=== PATIENT | female | born 1940 ===

== ENCOUNTER 2016-10-04 11:02 | Observation (INO) | payer MEDICARE, OTHER ==
[2016-10-04 11:03] VITALS: BMI 34.4
--- NOTE | 2016-10-04 11:29 | C.PDOC ---
History Of Present Illness Patient is a 76 y/o female, whose PMHx includes diabetes, HTN, and hypercholesterolemia, that is sent to the ED by PMD for elevated potassium level. Patient had routine blood work done today which showed potassium level of about 6.2. As per family member, patient's potassium levels have been high in the past. Denies any kidney disease. Family member also states that patient has not had BM since past 2 days. Otherwise, patient denies any physical complaints at this time. Time Seen by Provider: 10/04/16 11:15 Chief Complaint (Nursing): Abnormal Labs History Per: Family History/Exam Limitations: no limitations Current Symptoms Are (Timing): Still Present Severity: None Pain Scale Rating Of: 0 Recent travel outside of the [place]: No Additional History Per: Family Past Medical History Reviewed: Historical Data, Nursing Documentation, Vital Signs Vital Signs: Last Vital Signs Temp 97.8 F 10/04/16 16:35 Pulse 88 10/04/16 16:35 Resp 18 10/04/16 16:35 BP 177/98 H 10/04/16 16:35 Pulse Ox 98 10/04/16 16:35 - Medical History PMH: HTN, Hypercholesterolemia, Hyperlipidemia, Chronic Kidney Disease Surgical History: Cholecystectomy Denies: Pacemaker - [facility] Procedures DRAINAGE OF GALLBLADDER WITH DRAINAGE DEVICE, PERC APPROACH (02/29/16) TRANSFUSE NONAUT FROZEN PLASMA IN PERIPH VEIN, PERC (02/29/16) TRANSFUSE NONAUT PLATELETS IN PERIPH VEIN, PERC (02/29/16) Family History: States: Unknown Family Hx - Social History Hx Alcohol Use: No Hx Substance Use: No - Immunization History Hx Tetanus Toxoid Vaccination: No Hx Influenza Vaccination: No Hx Pneumococcal Vaccination: No Review Of Systems Except As Marked, All Systems Reviewed And Found Negative. Constitutional: Negative for: Fever, Chills Cardiovascular: Negative for: Chest Pain, Palpitations Respiratory: Negative for: Cough, Shortness of Breath Gastrointestinal: Negative for: Nausea, Vomiting, Abdominal Pain Neurological: Negative for: Weakness, Numbness, Headache, Dizziness Physical Exam - Physical Exam Appears: Non-toxic, No Acute Distress Skin: Normal Color, Warm, Dry Head: Atraumatic, Normacephalic Eye(s): bilateral: Normal Inspection, EOMI Neck: Normal ROM, Supple Chest: Symmetrical, No Tenderness Cardiovascular: Rhythm Regular, No Murmur Respiratory: Normal Breath Sounds, No Accessory Muscle Use, No Rales, No Rhonchi , No Wheezing Gastrointestinal/Abdominal: Soft, No Tenderness, No Distention, No Guarding Extremity: Normal ROM, No Deformity Neurological/Psych: Oriented x3, Normal Speech Gait: Steady ED Course And Treatment - Laboratory Results Result Diagrams: 10/04/16 16:00 Lab Interpretation: Abnormal ECG: Interpreted By Me, Viewed By Me (and Dr Lawler) ECG Rhythm: Sinus Rhythm ECG Interpretation: No Acute Changes Interpretation Of ECG: NSR at 87 bpm with low voltage, no peaked twaves, or widened QRS. O2 Sat by Pulse Oximetry: 99 (on RA) Pulse Ox Interpretation: Normal Progress Note: Labs, EKG ordered and reviewed. Patient was treated with Dextrose IV, Insulin, Sodium Bicarbonate, IV fluids, and Kayexalate oral susp. Case discussed with Dr. Lawler who agrees with plan and treatment. On reassessment, patient is resting comfortably, no acute distress. Medical Decision Making Medical Decision Making: Impression: Hyperkalemia 6.2 Plan: Labs, EKG ordered. Patient was treated with Dextrose IV, Insulin, Sodium Bicarbonate, IV fluids, and Kayexalate oral susp. Progress: EKG reviewed showing no peaked twaves or widened QRS, no acute changes. Patient was treated with Dextrose IV, Insulin, Sodium Bicarbonate, IV fluids, and Kayexalate oral susp. Case discussed with Dr. Lawler who agrees with plan and treatment. On reassessment, patient is resting comfortably, no acute distress. 14:[address] Olmos over phone who request to repeat blood work again after 2 hours, and requested to call him again if the potassium level remains above 5. ED OBSERVATION Discharge: Yes Date of observation admission: 10/04/16 - Observation admission statement Patient is being placed in observation because:: Hyperkalemia - Goals of Observation Goals of observation are:: cardiac monitoring, medications, iv fluids, repeat analysis - Progress Note Progress Note: 10/04/16 16:00 Potassium is 5.4 Patient remains alert and oriented in no distress. Patient is asking for discharge she states she does not want to stay in hospital. monitor shows no arrythmia and vital signs stable. I will call PCP Dr Olmos to discuss 10/04/16 16:[address] Olmos and recommended one more oral dose of Kayexylate and can discharge. Patient and family agreeable with plan for discharge. Patient to follow up on Thursday for repeat bloodwork. Disposition Counseled Patient/Family Regarding: Studies Performed, Diagnosis, Need For Followup - Disposition Disposition: HOME/ ROUTINE Disposition Time: 16:28 Condition: STABLE - POA Present On Arrival: None - Clinical Impression Clinical Impression: Hyperkalemia - PA / DAIRY ASSOCIATE / Resident Statement MD/DO has reviewed & agrees with the documentation as recorded. - Scribe Statement The provider has reviewed the documentation as recorded by the Scribjanneth Carney All medical record entries made by the Kelli were at my direction and personally dictated by me. I have reviewed the chart and agree that the record accurately reflects my personal performance of the history, physical exam, medical decision making, and the department course for this patient. I have also personally directed, reviewed, and agree with the discharge instructions and disposition.
[2016-10-04] MEDS ORDERED: Sodium Chloride 0.9% 1,000 ML IV ONE (11:30)
[2016-10-04] MEDS ORDERED: (Novolin R) Insulin Human Regular 100 units/ml vial IV ONE (11:41)
[2016-10-04] MEDS ORDERED: Dextrose 50% SYRINGE Inj (50 ml) IV STA (11:42)
[2016-10-04] MEDS ORDERED: Sodium Bicarbonate (8.4%) 50 Meq Syringe IVP ONE (11:43)
[2016-10-04] MEDS ORDERED: Sod Polystyrene Sulf 15 gm/60 ml Oral Susp PO ONE ×2 (11:43→16:23)
[2016-10-04] MEDS ORDERED: Dextrose 50% SYRINGE Inj (50 ml) ONE (11:56)
[2016-10-04] MEDS ORDERED: Sodium Chloride 0.9% 1,000 ML ONE (11:56)
[2016-10-04] MEDS ORDERED: (Novolin R) Insulin Human Regular 100 units/ml vial ONE (11:57)
[2016-10-04] MEDS ORDERED: Sodium Bicarbonate (8.4%) 50 Meq Syringe ONE (11:58)
[2016-10-04] MEDS ORDERED: Sod Polystyrene Sulf 15 gm/60 ml Oral Susp ONE ×2 (11:59→16:55)
[2016-10-04 12:20] LABS: POTASSIUM 6.1 mmol/L (3.6-5.2)
[2016-10-04 12:22] LABS: BILIRUBIN,TOTAL 0.4 mg/dL (0.2-1.3); TOTAL PROTEIN 7.6 g/dL (6.3-8.3)
[2016-10-04 12:23] LABS: CALCIUM 9.4 mg/dl (8.6-10.4)
[2016-10-04 13:55] LABS: POTASSIUM 5.5 mmol/L (3.6-5.2)
[2016-10-04 13:57] LABS: BILIRUBIN,TOTAL 0.4 mg/dL (0.2-1.3)
[2016-10-04 13:58] LABS: ALB/GLOB RATIO 0.9 (1.0-2.1); CALCIUM 9.2 mg/dl (8.6-10.4); TOTAL PROTEIN 7.4 g/dL (6.3-8.3)
[2016-10-04 16:12] LABS: POTASSIUM 5.4 mmol/L (3.6-5.2)
[2016-10-04 16:15] LABS: CALCIUM 9.4 mg/dl (8.6-10.4)
[2016-10-04 16:36] VITALS: BP 177/98; PULSE 88; RESP 18; TEMP 97.8
[2016-10-04 17:29] VITALS: O2SAT 99
== END 2016-10-04 16:27 | disposition home or self-care (01) ==
LOC: C.ER 11:02 → C.9OBSV 11:45
PROVIDERS: ADMIT Emergency Medicine; ATTEND Emergency Medicine
DX: E87.5 Hyperkalemia (principal); I10 Essential (primary) hypertension; E11.9 Type 2 diabetes mellitus without complications; E78.00 Pure hypercholesterolemia, unspecified
CPT/HCPCS: 36415; 80048; 80053; 96360; 96374; 99283; G0378; J1940; J7040

== ENCOUNTER 2016-10-06 08:34 | Emergency (ER) | payer MEDICARE, OTHER ==
[2016-10-06 08:34] VITALS: BMI 34.4
[2016-10-06 09:10] VITALS: TEMP 98.3
--- NOTE | 2016-10-06 09:24 | C.PDOC ---
History Of Present Illness 76 y/o female presents to the ED for repeat labs. Pt seen here 2 days ago for hyperkalemia without symptoms. Instructed to return to ED today for repeat potassium and to take results to nephrology appointment today. Denies chest pain , SOB palpitations or any other complaints. Time Seen by Provider: 10/06/16 09:08 Chief Complaint (Nursing): Abnormal Labs History Per: Patient History/Exam Limitations: no limitations Onset/Duration Of Symptoms: Days Severity: None Recent travel outside of the [place]: No Past Medical History Reviewed: Historical Data, Nursing Documentation, Vital Signs Vital Signs: Last Vital Signs Temp 98.3 F 10/06/16 08:53 Pulse 101 H 10/06/16 08:53 Resp 20 10/06/16 08:53 BP 171/91 H 10/06/16 08:53 Pulse Ox 99 10/06/16 09:26 - Medical History PMH: HTN, Hypercholesterolemia, Hyperlipidemia, Chronic Kidney Disease Surgical History: [facility] Procedures DRAINAGE OF GALLBLADDER WITH DRAINAGE DEVICE, PERC APPROACH (02/29/16) TRANSFUSE NONAUT FROZEN PLASMA IN PERIPH VEIN, PERC (02/29/16) TRANSFUSE NONAUT PLATELETS IN PERIPH VEIN, PERC (02/29/16) Family History: States: Unknown Family Hx - Social History Hx Alcohol Use: No Hx Substance Use: No - Immunization History Hx Tetanus Toxoid Vaccination: No Hx Influenza Vaccination: No Hx Pneumococcal Vaccination: No Review Of Systems Constitutional: Negative for: Fever Cardiovascular: Negative for: Chest Pain, Palpitations Respiratory: Negative for: Shortness of Breath Physical Exam - Physical Exam Additional Physical Exam Comments: Constitutional: No acute distress. Head: Normocephalic. Atraumatic. Eyes: PERRL. Neck: Supple. Cardiovascular: Regular rate. Radial pulse 2+ bilaterally. Chest: No tenderness. Respiratory: Clear to auscultation bilaterally. Back: No CVA tenderness. Musculoskeletal: No tenderness or swelling of extremities. Skin: No rash. Neurologic: Alert, no focal deficit ED Course And Treatment - Laboratory Results Result Diagrams: 10/06/16 09:23 O2 Sat by Pulse Oximetry: 99 (room air) Pulse Ox Interpretation: Normal Medical Decision Making Medical Decision Making: Patient given copy of labs, instructed to return to ED if any worsening symptoms. Disposition - Disposition Disposition: HOME/ ROUTINE Disposition Time: 09:46 Condition: STABLE Instructions: Chronic Kidney Disease (ED) - Clinical Impression Clinical Impression: Serum creatinine raised - Scribe Statement The provider has reviewed the documentation as recorded by the Kelli Hope Provider Attestation: All medical record entries made by the Kelli were at my direction and personally dictated by me. I have reviewed the chart and agree that the record accurately reflects my personal performance of the history, physical exam, medical decision making, and the department course for this patient. I have also personally directed, reviewed, and agree with the discharge instructions and disposition.
[2016-10-06 09:34] LABS: POTASSIUM 4.6 mmol/L (3.6-5.2)
[2016-10-06 09:37] LABS: BILIRUBIN,TOTAL 0.5 mg/dL (0.2-1.3); TOTAL PROTEIN 7.6 g/dL (6.3-8.3)
[2016-10-06 09:38] LABS: CALCIUM 8.9 mg/dl (8.6-10.4)
[2016-10-06 09:55] VITALS: BP 156/74; PULSE 89; RESP 18; O2SAT 98
== END 2016-10-06 09:56 | disposition home or self-care (01) ==
LOC: C.ER 08:34
DX: I12.9 Hypertensive chronic kidney disease with stage 1 through stage 4 chronic kidney disease, or unspecified chronic kidney disease (principal); N18.9 Chronic kidney disease, unspecified; R94.4 Abnormal results of kidney function studies